=== PATIENT | female | born 1955 | race Caucasian/White ===

== ENCOUNTER 2021-02-14 10:51 | Emergency (ER) | payer OTHER, SELFPAY ==
[2021-02-14 11:17] VITALS: BP 124/66; PULSE 66; RESP 18; TEMP 37.3; O2SAT 98
--- NOTE | 2021-02-14 11:38 | ED.ABDPAIN ---
HPI - Abdominal Pain General Chief Complaint: Abdominal Pain Stated Complaint: abd cramps Time Seen by Provider: 02/14/21 11:38 Source: patient and RN notes reviewed Mode of arrival: ambulatory Limitations: no limitations History of Present Illness HPI narrative: 65-year-old female presents concern for 1 week history of lower abdominal pain and cramping, frequent diarrhea that is foul-smelling and pale in color. She reports decreased appetite, dark-colored urine. She denies any unintentional weight loss, fever, nausea, vomiting, urine frequency, urine urgency, back pain, chills, body aches. Denies any intervention. She denies history of alcoholism, drug use. Reports she is a tobacco user. She denies any significant abdominal history or surgeries MD elicited complaint: abdominal pain Related Data Home Medications Medication Instructions Recorded Confirmed No Home Medications 02/14/21 02/14/21 Allergies Allergy/AdvReac Type Severity Reaction Status Date / Time No Known Allergies Allergy Verified 02/14/21 11:34 Review of Systems Review of Systems: CONSTITUTIONAL: Denies malaise, chills, sweats, or fever. EYES: Denies visual changes CARDIOVASCULAR: Denies chest pain, palpitations, or edema. RESPIRATORY: Denies cough or dyspnea. GASTROINTESTINAL: Reports bilateral lower abdominal pain, foul-smelling, discolored diarrhea. Denies nausea, vomiting, bloody, or mucous stools. GENITOURINARY: Denies dysuria or hematuria. Reports dark-colored urine SKIN: Denies rash or itching. MUSCULOSKELETAL: Denies back pain myalgia. NEUROLOGIC: Denies headache. All systems reviewed & are unremarkable except as noted in HPI and below PMFSH Comments At time of signature, agree with nursing past medical, surgical, social and family history. There is no relevant family history pertinent to the presenting complaint Exam Narrative: GENERAL: Well-appearing, well-nourished, and in no acute distress. HEAD: Normocephalic, atraumatic. EYES: PERRLA, conjunctivae clear, and EOMI. ENT: Nares clear, turbinates pink, no rhinorrhea or epistaxis. Mucous membranes moist. Oropharynx without edema, erythema, or lesions. Tonsils not enlarged and without exudate. NECK: Supple. No lymphadenopathy CHEST: Speaks in full sentences. No respiratory distress. HEART: Regular rate and rhythm. ABDOMEN: Soft, flat, mildly distended. No guarding, rebound tenderness, or rigid. No pulsatilla masses. Bowel sounds present in all four quadrants. Hepatomegaly noted negative Clement?s sign. No periumbilical tenderness. No Supra public tenderness or distension. No scars or surface trauma. SKIN: Warm, dry, no rash. NEURO: Alert and oriented x3. PSYCH: Normal mood and affect Course Course Emergency Course: Patient is aware of, understands and agrees to be seen in the emergency department. Patient agrees to proceed directly to I think the emergency department. Portions of this record may have been created with voice recognition software Vital Signs Vital signs: Vital Signs Temperature 99.1 F 02/14/21 11:17 Pulse Rate 66 02/14/21 11:17 Respiratory Rate 18 02/14/21 11:17 Blood Pressure 124/66 02/14/21 11:17 Pulse Oximetry 98 02/14/21 11:17 Temperature 99.1 F 02/14/21 11:17 Pulse Rate 66 02/14/21 11:17 Respiratory Rate 18 02/14/21 11:17 Blood Pressure 124/66 02/14/21 11:17 Pulse Oximetry 98 02/14/21 11:17 Reviewed. Transfer Transfered to: [facility] Transfer rationale: Abdominal pain, hepatomegaly Accepting physician: Dr. Roth MDM - Abdominal Pain MDM Narrative Medical decision making narrative: Exam findings warrant further evaluation emergency department; patient is non-toxic appearing and is in no distress. Patient is appropriate for transfer via private vehicle Lab Data Labs: Urine Glucose Negative Reference Range: Negative Urine Bilirubin N
== END 2021-02-14 12:01 | disposition short-term general hospital (02) ==
PROVIDERS: Emergency Provider Nurse Practitioner
DX: R10.30 Lower abdominal pain, unspecified (principal); F17.200 Nicotine dependence, unspecified, uncomplicated
CPT/HCPCS: 81003; 99212; G0463

== ENCOUNTER 2021-02-14 12:29 | Emergency (ER) | payer OTHER, SELFPAY ==
--- NOTE | ~2021-02-14 | CT_ITS ---
EXAMINATION: CT abdomen pelvis w con DATE: 02/14/2021 13:50 INDICATION: Low abdominal pain TECHNIQUE: Computed tomography (CT) of the abdomen and pelvis was performed with 100 cc Omnipaque 350 intravenous contrast. Automated exposure control and iterative reconstruction technique were employe d. Exam dose: 294.04 mGy-cm total exam DLP. COMPARISON: None. FINDINGS: Mild bilateral lower lobe dependent atelectasis, right greater than left. Mild emphysematou s changes are noted. Normal heart size. No pericardial or pleural effusion. There is prominent intrahepatic and extrahepatic bile duct dilatation (up to 1.5 cm diameter) and mosher creatic duct dilatation (up to 5.7 mm diameter). The common bile duct and pancreatic duct abruptly de crease in caliber at a heterogeneous ill-defined soft tissue mass in the region of the pancreatic hea d, suspicious for pancreatic malignancy. There is gastrohepatic, hazel hepatis, peripancreatic, aorto caval and periaortic lymphadenopathy. There are peritoneal implants as well, best demonstrated around the perimeter of the right hepatic lo be and right paracolic gutter. There is mild ascites. No hepatic space-occupying mass lesion is evident. The gallbladder is moderately distended with mild pericholecystic fluid. Normal splenic size. The adrenal glands appear unremarkable. No renal mass lesion or urinary tract calculus or hydroureteronephrosis is evident. There is moderate diffuse thickening of the urinary bladder wall. The uterus appears to be absent. There is atherosclerotic calcification but normal caliber of the abdominal aorta. There are bilateral L5 pars interarticularis defects with grade 1 anterolisthesis at L5-S1. There is diffuse osteopenia. IMPRESSION: Ill-defined pancreatic head mass with obstruction of the pancreatic and common bile duct s. Gastrohepatic, hazel hepatis, peripancreatic, aortocaval and periaortic lymphadenopathy and perito brent implants and mild ascites. Findings are most consistent with metastatic pancreatic cancer. Reviewed, dictated and finalized at [facility]. Reviewed, dictated and finalized at [facility]. IMPRESSION: Ill-defined pancreatic head mass with obstruction of the pancreati c and common bile ducts. Gastrohepatic, hazel hepatis, peripancreatic, aortocav al and periaortic lymphadenopathy and peritoneal implants and mild ascites. Fin dings are most consistent with metastatic pancreatic cancer.
[2021-02-14 12:30] VITALS: BP 145/75; PULSE 79; RESP 14; TEMP 36.5; O2SAT 99
[2021-02-14 13:04] LABS: Basophils Absolute Auto 0.1 K/mm3 (0.0-0.1); Basophils Percent Auto 0.6 % (0.2-1.2); Eosinophils Absolute Auto 0.2 K/mm3 (0-0.3); Eosinophils Percent Auto 2.4 % (0-4.4); Hematocrit 37.1 % (37.0-47.0); Hemoglobin 12.4 g/dL (12.0-15.0); Immature Granulocyte Absolute 0.04 K/mm3 (0.00-0.031); Immature Granulocyte Percent A 0.5 % (0-0.5); Lymphocytes Absolute Auto 1.65 K/mm3 (0.9-3.2); Lymphocytes Percent Auto 19.7 % (18.3-44.2); Mean Corpuscular HGB Conc 33.4 g/dl (32-36); Mean Corpuscular Hemoglobin 31.3 pg (26-34); Mean Corpuscular Volume 93.7 fl (80-100); Mean Platelet Volume 11.2 fl (7.4-10.4); Monocytes Absolute Auto 0.8 K/mm3 (0.1-0.6); Monocytes Percent Auto 9.3 % (2.6-8.5); Neutrophils Absolute Auto 5.7 K/mm3 (1.3-6.7); Neutrophils Percent Auto 67.5 % (45.5-73.1); Platelet Count Result 201 k/mm3 (150-375); Red Blood Count 3.96 M/mm3 (4.2-5.4); Red Cell Distribution Width 14.6 % (11.5-14.5); White Blood Count 8.4 K/mm3 (4.5-10.0)
[2021-02-14 13:14] LABS: Alanine Aminotransferase 302 U/L (4-35); Albumin Level 4.3 g/dL (3.5-5.1); Alkaline Phosphatase 333 U/L (38-126); Anion Gap 9 mmol/L (8-16); Aspartate Amino Transferase 204 U/L (14-36); Bilirubin,Total 4.6 mg/dL (0.2-1.3); Blood Urea Nitrogen 9 mg/dL (7-17); Calcium 9.3 mg/dL (8.4-10.2); Carbon Dioxide 27 mmol/L (22-30); Chloride 103 mmol/L (98-107); Estimated CRCL calculation 84 ml/min; Estimated Glomerular Filt Rate > 60; Glucose 107 mg/dL (65-110); Lipase 947 U/L (23-300); Potassium 3.2 mmol/L (3.4-5.0); Sodium 139 mmol/L (137-145)
[2021-02-14] MEDS: SODIUM CHLORIDE 0.9% IV 1,000 ML 999 ML IV CONT (13:35)
--- NOTE | 2021-02-14 13:40 | PC.NURSE ---
before order for Tylenol was dc from provider, pt had received approx 20 ml. provider aware. nno
[2021-02-14 13:43] LABS: Add Urine Microscopic? YES; Appearance Urine Clear (Clear); Bacteria Urine Trace /hpf; Bilirubin Urine 1+ (Negative); Blood Urine 1+ (Negative); Color Urine Amber (Yellow); Glucose Urine UA Negative (Negative); Ketones Urine Negative (Negative); Leukocyte Esterase Ur Negative LEU/UL (Negative); Nitrate Urine Negative (Negative); Protein Urine Negative (Negative); Specific Grav Ur 1.012 (1.001-1.035); Squamous Epithelial Cell Urine Rare /hpf (Few); WBC Urine 0-3 /hpf
[2021-02-14 13:58] LABS: Prothrombin Time 12.7 Seconds (11.1-14.7)
[2021-02-14 14:00] LABS: Partial Thromboplastin Time 26.9 SECONDS (22.3-36.8)
--- NOTE | 2021-02-14 14:04 | ED.ABDPAIN ---
HPI - Abdominal Pain General Chief Complaint: Abdominal Pain Stated Complaint: ABD PAIN Time Seen by Provider: 02/14/21 12:43 Source: patient and RN notes reviewed Mode of arrival: ambulatory Limitations: no limitations History of Present Illness HPI narrative: This is a 65 year old female who presents for evaluation lower abdominal pain. Patient reports constant lower abdominal pain that has been present for 1 week. She reports diarrhea and foul smelling urine. She denies vomiting, fever , or chills. She reports mild. She denies similar pain. She does report foul swelling stool as well. She has not seen doctor in 20 years. Related Data Home Medications Medication Instructions Recorded Confirmed No Home Medications 02/14/21 02/14/21 Allergies Allergy/AdvReac Type Severity Reaction Status Date / Time No Known Allergies Allergy Verified 02/14/21 12:35 Review of Systems Review of Systems: All systems reviewed & are unremarkable except as noted in HPI and below PMFSH Past Medical History Medical History (Updated 02/14/21 @ 17:00 by Emily Che PA-C) Patient denies medical problems Surgical History Surgical History (Updated 02/14/21 @ 14:08 by Erin Roth MD) No pertinent past surgical history Social History Social History (Updated 02/14/21 @ 14:09 by Erin Roth MD) Smoking packs per day: 1 Smoking cigarettes per day: 20.0 Smoking status: Current every day smoker Alcohol intake: never Substance use: never Exam Const: General: no acute distress and alert Orientation/consciousness: patient oriented x3 Eyes: EOM: EOMs intact bilaterally Resp: Effort & Inspection: normal respiratory effort and no retractions Auscultation: clear to auscultation bilaterally Cardio: Rate: regular rate Rhythm: regular rhythm Heart sounds: no murmurs GI: GI Palp: Yes Soft to palpation, Yes Tenderness to palpation present (GI), No Guarding due to palpation present (GI) and No Rigid due to palpation Auscultation: normal bowel sounds Back/Spine/Pelvis: Back: no CVA tenderness Skin: General skin exam: normal color Rashes: no rashes Neuro: General: patient oriented x3, moves all extremities and CN's II-XI intact bilaterally Course Consultations Consultation #1: I discussed labs and CT showing obstructing pancreatic mass with DR. Luis- Rivero. He states he can see patient in hospital at [facility] and perform ERCP and biopsy. Date: 02/14/21 Time: 14:43 Consultation #2: I discussed case with emily Che and she accepts patient to hospitalist service for evaluation of this pancreatitic mass. Date: 02/14/21 Time: 15:02 Vital Signs Vital signs: Vital Signs Temperature 97.7 F 02/14/21 12:30 Pulse Rate 79 02/14/21 12:30 Respiratory Rate 14 02/14/21 12:30 Blood Pressure 145/75 H 02/14/21 12:30 Pulse Oximetry 99 02/14/21 12:30 Temperature 97.7 F 02/14/21 12:30 Pulse Rate 90 02/14/21 16:57 Respiratory Rate 16 02/14/21 16:57 Blood Pressure 142/86 H 02/14/21 16:57 Pulse Oximetry 98 02/14/21 16:57 MDM - Abdominal Pain Lab Data Attestation: I reviewed the patient's lab results. Result diagrams: 02/14/21 12:54 02/14/21 12:54 Labs: Lab Results 02/14/21 02/14/21 02/14/21 Range/Units 12:54 12:54 12:54 WBC 8.4 (4.5-10.0) K/mm3 RBC 3.96 L (4.2-5.4) M/mm3 Hgb 12.4 (12.0-15.0) g/dL Hct 37.1 (37.0-47.0) % MCV 93.7 (80-100) fl MCH 31.3 (26-34) pg MCHC 33.4 (32-36) g/dl RDW 14.6 H (11.5-14.5) % Plt Count 201 (150-375) k/mm3 MPV 11.2 H (7.4-10.4) fl Immature Gran % (Auto) 0.5 (0-0.5) % Neut % (Auto) 67.5 (45.5-73.1) % Lymph % (Auto) 19.7 (18.3-44.2) % Elk % (Auto) 9.3 H (2.6-8.5) % Eos % (Auto) 2.4 (0-4.4) % Baso % (Auto) 0.6 (0.2-1.2) % Lymph # (Auto) 1.65 (0.9-3.2) K/mm3 Elk # (Auto) 0.8 H (0.1-0.6) K/mm3 Eos #
[2021-02-14 14:08] LABS: Hepatitis B Surface Antigen Negative (Negative)
[2021-02-14 14:14] LABS: HAV RESULT Negative (Negative); Hepatitis B Core IgM Result Negative (Negative)
[2021-02-14 14:22] LABS: Ammonia 17 umol/L (9-30)
[2021-02-14 14:25] LABS: Hepatitis C Virus Antibody Negative (Negative)
[2021-02-14 15:23] VITALS: BP 139/82; PULSE 81; RESP 14; O2SAT 98
--- NOTE | 2021-02-14 16:30 | PM.SD2 ---
Same Day Admit/Disch: HPI History of Present Illness Chief complaint: Abdominal pain. Narrative: This is a very pleasant 65-year-old female smoker without significant medical history who presented to the emergency department earlier today for evaluation of abdominal pain. She reports multiple symptoms that began within the last week which have been concerning to her to include mild and intermittent periumbilical cramping, bloating, decreased appetite, early satiety, and frequent loose, foul smelling, and yellow stools. She also notes that her urine is much more yellow than usual. Her symptoms have not been severe enough for her to require [id number]-hal-[id number] medications but she felt her body was trying to tell her that something was wrong and thus she went to urgent care today for evaluation. She was then referred to the emergency department for further workup where she was found to have elevated liver enzymes and lipase on labs. A CT of the abdomen and pelvis showed an ill-defined pancreatic head mass with obstruction of the pancreatic and common bile ducts, lymphadenopathy, and peritoneal implants concerning for metastatic pancreatic cancer. Initially the patient was going to be admitted to the hospital with plans for ERCP and biopsy per Dr. Alexander on Tuesday. I discussed the plan with the patient and she does not feel it is necessary for her to be admitted to the hospital for 2 nights simply to wait for Tuesday when the procedure can be performed. As she is not having much discomfort at this time and she is tolerating diet without issue, I felt this was reasonable. I discussed this with Dr. Alexander via phone as well and he did not think it was necessary for her to stay in the hospital over the weekend either and he requested that she call the office on Tuesday morning to schedule the procedure for sometime this week. The patient was also discussing with her family members that she may wish to follow-up instead with a hepatobiliary specialist. She was provided a copy of her imaging on CD should she choose to go that route. [facility] Past Medical History Medical History (Updated 02/14/21 @ 22:19 by Mamie Che PA-C) Tobacco dependence Surgical History Surgical History (Updated 02/14/21 @ 22:05 by Mamie Che PA-C) History of bunionectomy of both great toes History of cone biopsy of cervix Family History Family History Father Chronic kidney disease Mother Diabetes mellitus Acute myocardial infarction Sibling Heart disease Son Deep venous thrombosis Social History Social History (Updated 02/14/21 @ 22:08 by Mamie Che PA-C) Social History: The patient lives in her own home in [place]. One grown son. Works for [employer]. Carries a degree in nutrition. Smokes 1 pack of cigarettes a day. No alcohol or illicit substance abuse. Code status: Full code. Same Day Admit/Disch: Med Pre-admit Medications Home Medications Medication Instructions Recorded Confirmed Type No Home Medications 02/14/21 02/14/21 History Exam Narrative: General: Well-developed female sitting up in bed no distress. Weight: 68.04 kg. BMI: 22.2. HEENT: Wearing glasses. PERRL, EOMI. Mild scleral icterus. Oral mucosa moist. Oropharynx clear. Neck: Supple. No a high no adenopathy or JVD. Respiratory: Respirations are even and nonlabored. Lung sounds are diminished but otherwise clear to auscultation. Cardiovascular: Regular rate and rhythm with S1-S2. No murmur. Gastrointestinal: Abdomen is soft and nondistended. She is somewhat tender to palpation in the epigastric and periumbilical region though not significantly so. Liver feels enlarged. No palpable masses. No guarding or rebound tenderness. Skin: Warm and dry. No rash, lesion, or jaundice. Extremities: No cyanosis, clubbing, or edema. Radial and pedal pulses intact. Neurological: Alert. C
[2021-02-14 16:57] VITALS: BP 142/86; PULSE 90; RESP 16; O2SAT 98
[2021-02-14] MEDS: POTASSIUM CHLORIDE 20 MEQ TABLET PO (17:51)
== END 2021-02-14 17:05 | disposition home or self-care (01) ==
LOC: ANHED 13:06 → ANH2MED 16:57
PROVIDERS: Emergency Medicine; Emergency Provider General Practice
DX: K86.9 Disease of pancreas, unspecified (principal); R74.01 Elevation of levels of liver transaminase levels; K83.1 Obstruction of bile duct; F17.200 Nicotine dependence, unspecified, uncomplicated; E87.6 Hypokalemia
CPT/HCPCS: 36415; 74177; 80053; 80074; 81001; 82140; 83690; 85025; 85610; 85730; 96360; 99284; A9270; J7030; Q9967

== ENCOUNTER 2021-04-10 13:45 | Outpatient (CLI) | payer OTHER, SELFPAY ==
--- NOTE | ~2021-04-10 | XR_ITS ---
EXAMINATION: XR abdomen/kub 1V DATE: 04/10/2021 14:23 INDICATION: Unspecified abdominal pain. TECHNIQUE: A supine view of the abdomen on 2 radiographs was obtained. COMPARISON: CT abdomen and pelvis 02/14/2021 FINDINGS: There are no dilated loops of bowel. There is a permanent biliary stent in expected positio n. Pneumobilia is noted. There is mild atelectasis at right lung base. IMPRESSION: 1. Nonobstructive bowel gas pattern. Reviewed, dictated and finalized at [facility].
--- NOTE | ~2021-04-10 | XR_ITS ---
XR chest 2V DATE: 04/10/2021 14:23 INDICATION: Dyspnea. Hypertension. Smoker. Pancreatic cancer. TECHNIQUE: PA and lateral views COMPARISON: None FINDINGS: Bilateral hyperinflation, relative flattening the diaphragm and increased retrosternal airs pace, consistent with COPD. There is mild infiltrate or atelectasis in the right lung base. The lungs otherwise appear clear of i nfiltrate or consolidation. There may be minimal right pleural effusion. No pneumothorax. TIPS catheter overlies the abdomen. Diffuse osteopenia. IMPRESSION: Mild infiltrate or atelectasis at right lung base COPD Reviewed, dictated and finalized at [facility].
[2021-04-10 14:12] LABS: Basophils Absolute Auto 0.1 K/mm3 (0.0-0.1); Basophils Percent Auto 0.5 % (0.2-1.2); Eosinophils Absolute Auto 0.1 K/mm3 (0-0.3); Eosinophils Percent Auto 0.9 % (0-4.4); Hematocrit 36.2 % (37.0-47.0); Hemoglobin 11.7 g/dL (12.0-15.0); Immature Granulocyte Absolute 0.07 K/mm3 (0.00-0.031); Immature Granulocyte Percent A 0.7 % (0-0.5); Lymphocytes Absolute Auto 0.77 K/mm3 (0.9-3.2); Lymphocytes Percent Auto 7.3 % (18.3-44.2); Mean Corpuscular HGB Conc 32.3 g/dl (32-36); Mean Corpuscular Hemoglobin 31.5 pg (26-34); Mean Corpuscular Volume 97.3 fl (80-100); Mean Platelet Volume 9.8 fl (7.4-10.4); Monocytes Absolute Auto 0.9 K/mm3 (0.1-0.6); Monocytes Percent Auto 8.7 % (2.6-8.5); Neutrophils Absolute Auto 8.7 K/mm3 (1.3-6.7); Neutrophils Percent Auto 81.9 % (45.5-73.1); Platelet Count Result 328 k/mm3 (150-375); Red Blood Count 3.72 M/mm3 (4.2-5.4); White Blood Count 10.6 K/mm3 (4.5-10.0)
[2021-04-10 14:34] LABS: Ammonia < 9 umol/L (9-30)
[2021-04-10 14:51] LABS: Alanine Aminotransferase 154 U/L (4-35); Albumin Level 3.8 g/dL (3.5-5.1); Alkaline Phosphatase 875 U/L (38-126); Anion Gap 6 mmol/L (8-16); Aspartate Amino Transferase 142 U/L (14-36); Blood Urea Nitrogen 11 mg/dL (7-17); Calcium 8.9 mg/dL (8.4-10.2); Carbon Dioxide 31 mmol/L (22-30); Chloride 97 mmol/L (98-107); Estimated Glomerular Filt Rate > 60; Glucose 104 mg/dL (65-110); Potassium 3.9 mmol/L (3.4-5.0); Sodium 134 mmol/L (137-145)
[2021-04-10 15:19] LABS: Add Urine Microscopic? YES; Appearance Urine Turbid (Clear); Bilirubin Urine 1+ (Negative); Blood Urine 2+ (Negative); Calcium Oxalate Crystals Urine Present /hpf; Color Urine Red (Yellow); Glucose Urine UA Negative (Negative); Ketones Urine Trace mg/dL (Negative); Leukocyte Esterase Ur Trace LEU/UL (Negative); Mucus Urine Heavy /lpf; Nitrate Urine Negative (Negative); Protein Urine 2+ mg/dL (Negative); RBC Urine >75 /hpf (0-2); Specific Grav Ur 1.028 (1.001-1.035)
== END 2021-04-10 13:46 | disposition home or self-care (01) ==
PROVIDERS: PCP Family Medicine; Visit Provider Family Medicine
DX: C25.9 Malignant neoplasm of pancreas, unspecified (principal); R10.9 Unspecified abdominal pain; R53.83 Other fatigue; R06.00 Dyspnea, unspecified; J44.9 Chronic obstructive pulmonary disease, unspecified; R91.8 Other nonspecific abnormal finding of lung field
CPT/HCPCS: 36415; 71046; 74018; 80053; 81001; 82140; 85025

== ENCOUNTER 2021-04-24 09:27 | Outpatient (CLI) | payer OTHER, SELFPAY ==
--- NOTE | ~2021-04-24 | XR_ITS ---
EXAMINATION: XR chest 2V w BI decubitus EXAM DATE: 04/24/2021 10:08 INDICATION: J90 - Pleural effusion, H/O pancreatic cancer. TECHNIQUE: Frontal and lateral projections of the chest obtained and reviewed. Right and left decubi tus projections. Comparison is made to prior examination from 04/10/2021. FINDINGS: The lungs are hyperinflated which can be seen with chronic obstructive pulmonary disease ( a clinical diagnosis of functional impairment), but is not diagnostic of it. There is blunting of bot h costophrenic recesses. On the left lateral decubitus, evidence that some of this blunting is due to a small pleural effusion. Some linear basilar scarring/atelectasis unchanged. No confluent consolida tion, or pneumothorax suspected. Cardiomediastinal silhouette is normal. There are no osseous abnorma lities identified. IMPRESSION: 1. Small left pleural effusion. 2. Basilar atelectasis/scarring unchanged. 3. Chronic hyperinflation. Reviewed, dictated and finalized at location [facility].
--- NOTE | ~2021-04-24 | US_ITS ---
EXAMINATION: US paracentesis abd w/image DATE: 04/24/2021 11:41 INDICATION: Ascites. TECHNIQUE: The procedure and its risks, benefits, and alternatives were discussed with the patient. P otential risks discussed included bleeding and infection. The skin was prepped and draped in sterile fashion. 1% lidocaine was used for local anesthesia. Under ultrasound guidance, a 5 Fr catheter with trochar was advanced into the ascites in the right lower quadrant. Fluid was aspirated. The catheter was removed, and a dressing was applied. There were no immediate complications. FINDINGS: Ultrasound images demonstrate ascites and the catheter within the fluid. IMPRESSION: 1. Successful ultrasound-guided paracentesis yielding 1650 mL of yellow fluid. Reviewed, dictated and finalized at location [facility].
[2021-04-24 10:39] LABS: Prothrombin Time 13.1 Seconds (11.1-14.7)
== END 2021-04-24 09:28 | disposition home or self-care (01) ==
PROVIDERS: Radiology Diagnostic Radiology; PCP Family Medicine; Visit Provider Family Medicine
DX: J90 Pleural effusion, not elsewhere classified (principal); R18.8 Other ascites; C25.9 Malignant neoplasm of pancreas, unspecified; R91.8 Other nonspecific abnormal finding of lung field
CPT/HCPCS: 36415; 49083; 71048; 85610